=== PATIENT | female | born 1955 | race Caucasian/White ===

== ENCOUNTER → 2016-07-27 | Outpatient (CLI) | payer OTHER ==
--- NOTE | 2016-07-30 09:17 | RADIOLOGY REPORT PS360 ---
DIG MAMM-SCREEN LUDMILA W/CAD CAD Screening ORDERING PHYSICIAN : Todd Schultz MD PATIENT AGE: 61 years GENDER: Female COMPARISON: Prior mammogram February 2012, June 2015, May 2014, March 2013 INDICATION: Routine screening 61-year-old no hormones no new complaints bilateral breast reduction of with associated scarring. Family history: Half sister with breast cancer. TECHNIQUE: Standard CC and MLO images were obtained. R2 CAD reviewed. FINDINGS: Stable mild asymmetry. No dominant mass nor suspicious calcifications in either breast. No new areas concern either breast RIGHT BREAST: Stable appearance right breast. Asymmetric tissue upper-outer quadrant again noted and stable. Previous metallic marker from percutaneous biopsy at the superior retroareolar region again noted with this area stable. LEFT BREAST: A small focal area of density in the upper-outer quadrant of the dates back to 2011-appears stable since that time as well as June 2015. Can be followed. Other areas left breast appears stable as well IMPRESSION: Stable bilateral mammogram. No new areas of concern BI-RADS CATEGORY: 2_Benign RECOMMENDED FOLLOWUP: 12M 12 MONTH FOLLOW-UP (A letter has been sent to the patient regarding results of the study.)
== END ==
LOC: RAD 08:48
DX: Z12.31 Encounter for screening mammogram for malignant neoplasm of breast (principal)
CPT/HCPCS: G0202

== ENCOUNTER 2017-05-17 08:31 | Day surgery (SDC) | payer OTHER ==
--- NOTE | 2017-05-17 10:15 | Operative Note ---
Colonoscopy (Alex) Procedure date: 05/17/17 Date of : 53 Procedure:Colonoscopy Colonoscopy with cold snare polypectomy Indications: Mrs. Garcia is a 62-year-old female who is here for follow-up screening/ surveillance colonoscopy. The patient did have a colonoscopy in September 2006 and had a cecal polyp (tubular adenoma 1) removed. Her last colonoscopy in 2011 was normal. The patient reports no abdominal pain, weight loss, change in her bowel habits or rectal bleeding. She reports no family history of colon cancer. Performing Provider: Radha Johnson MD Referrring Provider: Loc Doran M.D. Sedation: Fentanyl 150 mg IV/Versed 7 mg IV Procedure: Prior to the procedure, a history and physical exam was performed, and patient medications and allergies were reviewed. The risks and benefits of the procedure and the sedation options and risks were discussed with the patient. All questions were answered and informed consent was obtained. Patient identification and proposed procedure were verified by the physician and the nurse. The patient was placed in a left lateral decubitus position. Throughout the procedure, the patient's blood pressure, pulse, and oxygen saturations were monitored continuously. Findings: On digital rectal examination there was normal rectal tone. There were no external hemorrhoids. The colonoscope was introduced through the anal canal to the rectum and advanced to the cecum. The ileocecal valve and appendiceal orifice were identified. The scope was advanced a short distance into the ileum which appeared grossly normal. The scope was then withdrawn into the colon. There were 2 colon polyps identified in the cecum 1 and sigmoid 1. These ranged in size from 5-6 mm and were all removed via cold snare polypectomy. The remaining cecum, ascending, transverse, descending, sigmoid and rectum were grossly normal. There were no other mucosal abnormalities identified. Upon retroflexion within the rectum there were minimal grade 0-1 internal hemorrhoids. Impressions: 1. Diminutive colonic polyps 2 2. Grade 01 internal hemorrhoids Recommendations: I will follow up the polyp pathology and recommend repeat colonoscopy again in 5 years based upon the polyp histology. I would encourage fiber supplementation on a long-term daily maintenance basis. Complications: None EBL (ml): 0 at 1014
[2017-05-17 16:43] VITALS: BP 110/76
== END 2017-05-17 11:15 | disposition home or self-care (01) ==
LOC: SDC 08:31
PROVIDERS: Internal Medicine Gastroenterology
PROC: 0DBN8ZX Excision of Sigmoid Colon, Via Natural or Artificial Opening Endoscopic, Diagnostic (ICD-10-PCS; 2017-05-17)
PROC: 0DBH8ZX Excision of Cecum, Via Natural or Artificial Opening Endoscopic, Diagnostic (ICD-10-PCS; principal; 2017-05-17 09:30)
DX: Z12.11 Encounter for screening for malignant neoplasm of colon (principal); D12.0 Benign neoplasm of cecum; D12.5 Benign neoplasm of sigmoid colon

== ENCOUNTER 2017-06-03 16:22 | Emergency (ER) | payer OTHER ==
[~2017-06-03] VITALS: Ht 165.1 cm; Wt 67.1 kg
--- OUTSIDE RECORDS SUMMARY | 2017-06-03 16:26 | External Medical Summary Rpt | CCD ---
Author Author , CHERRIE Organization [facility]ERRIE Address Unknown Phone [email or web address] Immunization Name Date Rout CVX Reac Dose Comm Prov Is Faci e tion ent ider Refu lity Give sed n Infl 10-0 150 999 Hist D203 No D203 uenz 5-20 oric 45 45 a 16 al Quad Info Inj rmat ion - Sour ce Unsp ecif ied
--- OUTSIDE RECORDS SUMMARY | 2017-06-03 16:26 | External Medical Summary Rpt ---
Author Author ALDO Fenton, [employer] Organization [employer] Address Unknown Phone Unavailable
--- OUTSIDE RECORDS SUMMARY | 2017-06-03 16:26 | External Medical Summary Rpt | CCD ---
Author Author [employer] Organization [employer] Address Unknown Phone Unavailable Purpose Continuity of Care Document - through 2016
--- OUTSIDE RECORDS SUMMARY | 2017-06-03 16:26 | External Medical Summary Rpt | CCD ---
Author Author , CHERRIE Organization [facility]ERRI[facility] Address Unknown Phone [email or web address] Immunization Name Date Rout CVX Reac Dose Comm Prov Is Faci e tion ent ider Refu lity Give sed n Infl 10-0 150 999 Hist D203 No D203 uenz 5-20 oric 45 45 a 16 al Quad Info Inj rmat ion - Sour ce Unsp ecif ied
--- OUTSIDE RECORDS SUMMARY | 2017-06-03 16:26 | External Medical Summary Rpt | CCD ---
Author Author ALDO Address Unknown Phone [email or web address] Purpose Continuity of Care Document - through 2016
--- OUTSIDE RECORDS SUMMARY | 2017-06-03 16:26 | External Medical Summary Rpt | CCD ---
Author Author ALDO Address Unknown Phone Purpose Continuity of Care Document - through 2016
[2017-06-03] MEDS ORDERED: IBUPROFEN800 MG PO (18:55)
--- NOTE | 2017-06-03 18:56 | Urgent Treatment Center Report ---
History of Present Issue Date/Time Seen by Provider 06/03/17 1842 Visit Reason Pt arrived:Wheelchair Presenting Problem:FELL AT HOME 1100, LEFT KNEE PAIN Location if Accident: Onset of symptoms date/time:/ or onset unknown for:MEDICAL HX UNKNOWN Have you (or family members/close friends) recently traveled outside the [place]? N If Yes, where/when: Have you had exposure to infectious disease within the past month? TB? Other? Specify: Patient state that was in her Kitchen at home when she slipped on her wet floor and landed on her left knee States that she has been having pain and swelling in left knee ever since State that she was worried when it hurt to move the knee so she came in to get an xray ALLERGIES Coded Allergies: No Known Allergies (05/17/17) History Medical History General Angina: No OR: No Hypertension? No Hyperlipidemia? Yes CHF? No COPD? No Asthma? No Hernia? Yes CVA? No Seizures? No Diabetes? No UTI? Yes Stones? No GB Disease: No Hepatitis? No Cataracts? No Glaucoma? No MRSA? No TB? No Cancer? No Immunization HX DT/Tetanus UNKNOWN Flu NEVER Pneumonia 1-4 YRS Surgical Hx Previous Surgery?Y BACK SURGERY TUBAL LIGATION Family History Family HX Diabetes No CAD Yes Hypertension Yes Hyperlipidemia No Cancer Yes TB No Social History Smoking Hx Smoker: Never Smoker Tobacco: No Alcohol Alcohol: No Review of Systems All Other Systems Reviewed and Negative Comment pain in left knee after falling at home on wet floor and landing on her left knee Physical Exam Vital Signs Vital Signs Date Time Temp Pulse Resp B/P Pulse O2 O2 Flow FiO2 Ox Delivery Rate 06/03 1809 98.7 85 20 143/72 100 General Appearance normal appearance, WD/WN, no apparent distress Respiratory Status Yes: trachea midline, chest symmetrical, non tender chest. No: respiratory distress. Lung Sounds bilateral: normal breath sounds, lungs clear. Cardiovascular normal exam, regular rate/rhythm, no peripheral edema Extremities Pain in left knee area after falling with mild swelling noted and bruising to knee, good pedal pulses and cap refill Neurologic alert, normal exam, oriented x 3 Medical Decision Making LABS/Meds/Orders Pt receiving controlled substance in ED? No Results/Orders Current Medication Orders Sig/Obi Start time Last Medication Dose Route Stop Time Status Admin Ketorolac 60 MG ONCE ONE 06/03 1900 AC Tromethamine IM 12/07 1901 Orders Procedure Date/time Status [facility] STABILIZE JOINT/AREA 06/03 1847 Active KNEE-3 VIEWS-LT 06/03 171 Active XRAY/CT/US XRAY/CT/US XRAY knee XR interpretation by reviewed by me Xray Results no fracture seen Comment Discussed with Dr Méndez, will have Radiologist do official reading and then call patient if any discrepancies or different findings from initial Departure Departure Time of Disposition 1851 Disposition DC Home or Self Care(routine) Clinical Impression Primary Impression: Knee injury Qualifiers: Encounter type: initial encounter Laterality: left Qualified Code: S89.92XA - Unspecified injury of left lower leg, initial encounter Condition STABLE Referrals Espinoza THURMAN,Loc (Family): [facility] Follow up with family doctor for referral to Orthopedics [facility]ee THURMAN,Bob HERNANDEZ MD, SHIVANI IVERSON Patient Instructions How To Perform RICE (Rest, Ice, Compress, Elevate), How to Use a Knee Immobilizer, How to Use Crutches Additional Instructions *RICE, Rest the extremity, Ice 15-20 minutes 3-4 times daily, Compress- wear the gal wrap as discussed as much as possible to help reduce swelling and pain, Elevate the extremity when at rest *Gal wrap is for support and help control swelling, use it except in the shower. Be sure that is not to tight but not to loose either *Elevate when resting *Ibuprofen 600-800mg every 6-8 hours as needed for pain an inflammation. If need something more can take Tylenol in between doses of Ibuprofen to help Immediately follow up for new or worsening of symptoms, or no noticeable improvement over the next 3-5 days Discharge Counseling Counseled pt/family regarding diagnosis, test results, medications/RX, home care, follow up needs Prescriptions Current Visit Scripts Ibuprofen (Ibuprofen 800MG) 800 MG PO QIDP PRN pain #30 TAB at 1857
[2017-06-03 19:08] VITALS: BP 140/88
--- NOTE | 2017-06-04 05:46 | RADIOLOGY REPORT PS360 ---
KNEE-3 VIEWS-LT HISTORY: Posttraumatic pain FELL AT HOME ORDERING PHYSICIAN: PETR PONCE APRN PATIENT AGE: 62 years COMPARISON: 03/22/2013 FINDINGS: No fracture or dislocation. No lytic or blastic change. Normal mineralization. No significant arthritic changes evident. There is increased density in the suprapatellar region consistent with small knee joint effusion IMPRESSION: Knee joint effusion otherwise negative, no acute fracture
== END 2017-06-03 19:09 | disposition home or self-care (01) ==
LOC: UTC 16:22
DX: S89.92XA Unspecified injury of left lower leg, initial encounter (principal); W19.XXXA Unspecified fall, initial encounter